=== PATIENT | female | born 1995 | race Caucasian/White ===

== ENCOUNTER 2018-04-01 18:29 | Inpatient (IN) | payer OTHER ==
[2018-04-01] MEDS ORDERED: Sodium Chloride 0.9% 1,000 ML IV ONE ×2 (19:05→22:25)
--- NOTE | 2018-04-01 19:08 | C.PDOC ---
History Of Present Illness 22 y/o female BIBA for evaluation of fever/chills, back and lower abdominal pain and foul smelling urine since yesterday. Patient is s/p termination of 10 days ago (at approx 5 weeks gestation), given pills and vaginal amaro ppository by her associate store director (taken on 03/20 and 03/21). She had some vaginal bleeding at that time, which has improved and is currently minimal. She admits to history of prior UTIs. Patient denies vomiting, diarrhea, chest pain, SOB, vaginal discharge, dysuria. Time Seen by Provider: 04/01/18 18:50 Chief Complaint (Nursing): Fever History Per: Patient History/Exam Limitations: no limitations Onset/Duration Of Symptoms: Days (since yesterdat ) Current Symptoms Are (Timing): Still Present Associated Symptoms: Fever, Chills. denies: Vomiting, Diarrhea Severity: Moderate Past Medical History Reviewed: Historical Data, Nursing Documentation, Vital Signs Vital Signs: Last Vital Signs Temp 103.1 F H 04/01/18 18:46 Pulse 122 H 04/01/18 18:46 Resp 20 04/01/18 18:46 BP 122/69 04/01/18 18:46 Pulse Ox 98 04/01/18 18:46 - Medical History PMH: No Chronic Diseases Family History: States: No Known Family Hx - Social History Hx Alcohol Use: No Hx Substance Use: No - Immunization History Hx Tetanus Toxoid Vaccination: No Hx Influenza Vaccination: No Hx Pneumococcal Vaccination: No Review Of Systems Constitutional: Positive for: Fever, Chills Cardiovascular: Negative for: Chest Pain, Palpitations Respiratory: Negative for: Cough, Shortness of Breath Gastrointestinal: Positive for: Abdominal Pain (lower). Negative for: Nausea, Vomiting, Diarrhea Genitourinary: Positive for: Other (foul smelling urine, right sided flank pain) Musculoskeletal: Positive for: Back Pain Skin: Negative for: Rash Physical Exam - Physical Exam Appears: Well, Non-toxic, In Acute Distress (in mild discomfort, warm to the t ouch) Skin: Normal Color, Warm, Dry Head: Normacephalic Eye(s): bilateral: Normal Inspection Oral Mucosa: Moist Cardiovascular: Rhythm Regular (tachycardic) Respiratory: Normal Breath Sounds, No Rales, No Rhonchi, No Wheezing Gastrointestinal/Abdominal: Bowel Sounds, Soft, Tenderness (mild tenderness to suprapubic area), No Guarding, No Rebound, Other ((-) McBurney's) Back: CVA Tenderness (Right) Neurological/Psych: Oriented x3 Gait: Steady ED Course And Treatment - Laboratory Results Result Diagrams: 04/05/18 11:07 04/05/18 11:07 O2 Sat by Pulse Oximetry: 98 (RA) Pulse Ox Interpretation: Normal - CT Scan/US transvaginal US Other Rad Studies (CT/US): Read By Radiologist, Radiology Report Reviewed CT/US Interpretation: Name:BERNARDA FIELDS Exam Date:Apr 01, 2018 8:35:39 PM EDT. Modality Type:SD\US\ID\SR. Description:US - PELVIC REAL TIME TRANSABDOMINAL/TRANSVAGINAL W COLOR DOPPLER. Gender:F Laterality:Bilateral. :94 Referring Physician:Natalia Odell (). History. Pelvic pain status post TOP. Comparison. None available. Technique. Realtime sonographic images were obtained in multiple projections. Findings. Uterus. Measures 7.6 x 4.1 x 5.5 cm. Retroverted. Normal in size. No fibroid or other mass lesion seen. Endometrium. Measures 0.6 cm in diameter. Unremarkable. Right ovary. Measures 3.4 x 2.4 x 2.3 cm. No solid mass. Ovarian cyst measures 1.2 x 1.2 x 1.3 cm. Normal flow. Left ovary. Measures 3.7 x 1.4 x 2.1 cm. No solid mass. Normal flow. Free fluid. No significant free fluid noted. Impression. 1. Uterus and left ovary are unremarkable. 2. Left ovarian cyst. . Electronically signed on Apr 01, 2018 10:33:48 PM EDT by: Thomas Sy M.D., CECILIO Certified By ABR & CBCCT. Fellowship Trained MRI and CT Specialis Progress Note: Blood work, UA, Upreg and transvaginal US ordered and reviewed. Patient given IV NS bolus, PO tylenol. UA (+) for UTI + leukocytosis, fever, right sided flank pain - suspect pyelonephritis in this patient. IV rocephin given. Transvaginal US negative for any acute findings/retained POC. - Physician Consult Information Physician Contacted: Ingrid Forrester Outcome Of Conversation: Discussed patient with medicine blocker and cutter contact lens, agrees with admission for pyelonephritis. Disposition - Disposition Disposition: HOSPITALIZED Disposition Time: 23:11 Condition: STABLE - Clinical Impression Clinical Impression: Pyelonephritis - Scribe Statement The provider has reviewed the documentation as recorded by the Bridgetteibe Marge Bran Provider Attestation: All medical record entries made by the Scribe were at my direction and personally dictated by me. I have reviewed the chart and agree that the record accurately reflects my personal performance of the history, physical exam, medical decision making, and the department course for this patient. I have also personally directed, reviewed, and agree with the discharge instructions and disposition. Decision To Admit - Pt Status Changed To: Hospital Disposition Of: Inpatient - Admit Certification Admit to Inpatient:: After my assessment, the patient will require hospitalization for at least two midnights. This is because of the severity of symptoms shown, intensity of services needed, and/or the medical risk in this patient being treated as an outpatient. - InPatient: Physician Admission Certification:: see notes - . Bed Request Type: Regular Admitting Physician: Ingrid Forrester Patient Diagnosis: Pyelonephritis
[2018-04-01 19:26] LABS: BASO # 0.1 K/uL (0.0-0.2); BASO % 0.9 % (0.0-2.0); HEMOGLOBIN 11.6 g/dL (11.0-16.0); LYMPH # 4.1 K/uL (1.0-4.3); LYMPH % 23.8 % (20.0-40.0); MEAN CELL VOLUME 81.9 fL (81.0-99.0); MEAN PLATELET VOLUME 6.9 fL (7.2-11.7); MONO # 1.8 K/uL (0.0-0.8); MONO % 10.8 % (0.0-10.0); NEUT % 64.5 % (50.0-75.0); RBC 4.28 Mil/uL (3.80-5.20); RED CELL DISTRIBUTION WIDTH 12.8 % (11.5-14.5); WHITE BLOOD COUNT 17.1 K/uL (4.8-10.8)
[2018-04-01 19:40] LABS: ALB/GLOB RATIO 1.2 (1.0-2.1); ALBUMIN 4.5 g/dL (3.5-5.0); ALT/SGPT 63 U/L (9-52); AST/SGOT 41 U/L (14-36); BLOOD UREA NITROGEN 8 mg/dL (7-17); GFR NON-AFRICAN AMERICAN > 60
[2018-04-01 20:08] LABS: SQUAMOUS EPITHIAL 9 /hpf (0-5); URINE BACTERIA MANY (<OCC); URINE BILIRUBIN NEGATIVE (NEGATIVE); URINE BLOOD 3+ (NEGATIVE); URINE CLARITY Hazy (Clear); URINE COLOR Yellow (YELLOW); URINE GLUCOSE (UA) NORMAL (Normal); URINE LEUKOCYTE ESTERASE 3+ Leu/uL (Negative); URINE PROTEIN 1+ mg/dL (NEGATIVE); URINE UROBILINOGEN NORMAL mg/dL (0.2-1.0)
[2018-04-01] MEDS ORDERED: cefTRIAXone IV 1 gm in Dextros 50 ML IV STA (21:55)
[2018-04-01] MEDS ORDERED: Sodium Chloride 0.9% 1,000 ML ONE (22:32)
[2018-04-02] MEDS ORDERED: Cefepime 2 GM in Sodium Chloride 0.9% 50 ML IVPB SCH (00:30)
[2018-04-02] MEDS ORDERED: Cefepime 2 GM in Sodium Chloride 0.9% 100 ML IVPB SCH (00:45)
[2018-04-02] MEDS: Sodium Chloride 0.45% 1,000 ML IV SCH ×3 (01:00→11:32)
[2018-04-02] MEDS: Cefepime 2 GM in Dextrose 5% In Water 100 ML IVPB SCH ×3 (01:45→23:48)
[2018-04-02 07:26] LABS: ALB/GLOB RATIO 1.1 (1.0-2.1); ALBUMIN 3.2 g/dL (3.5-5.0); ALT/SGPT 54 U/L (9-52); AST/SGOT 36 U/L (14-36); BLOOD UREA NITROGEN 7 mg/dL (7-17); CALCIUM 7.8 mg/dl (8.6-10.4); GFR NON-AFRICAN AMERICAN > 60
[2018-04-02 07:28] LABS: BASO # 0.1 K/uL (0.0-0.2); BASO % 0.3 % (0.0-2.0); LYMPH # 2.6 K/uL (1.0-4.3); LYMPH % 15.6 % (20.0-40.0); MEAN CELL VOLUME 82.3 fL (81.0-99.0); MEAN CORPUSCULAR HEMOGLOBIN 27.3 pg (27.0-31.0); MEAN CORPUSCULAR HGB CONC 33.1 g/dL (33.0-37.0); MONO # 2.3 K/uL (0.0-0.8); NEUT # 11.6 K/uL (1.8-7.0); NEUT % 70.1 % (50.0-75.0); RBC 3.51 Mil/uL (3.80-5.20); RED CELL DISTRIBUTION WIDTH 13.3 % (11.5-14.5); WHITE BLOOD COUNT 16.6 K/uL (4.8-10.8)
[2018-04-02 07:36] LABS: HEMOGLOBIN 9.6 g/dL (11.0-16.0)
[2018-04-02 08:33] VITALS: RESP 20
--- NOTE | 2018-04-02 09:58 | US ---
Date of service: 04/01/2018 HISTORY: pelvic pain, s/p TOP COMPARISON: None available. TECHNIQUE: Transabdominal and ultrasound was performed. FINDINGS: UTERUS: Measures 7.6 x 4.1 x 5.5 cm. The uterus is retroverted and bulky. No fibroid or other mass lesion seen. ENDOMETRIUM: Measures 6 mm in diameter. Unremarkable. CERVIX: No cervical abnormality identified. RIGHT OVARY: Measures 3.4 x 2.4 x 2.3 cm. No solid mass. Normal flow. There is a 1.2 x 1.2 x 1.3 cm para ovarian cyst. LEFT OVARY: Measures 3.7 x 1.4 x 2.1 cm. No solid mass. Normal flow. FREE FLUID: No significant free fluid noted. OTHER FINDINGS: None. IMPRESSION: No evidence for endometrial abnormality. 1.3 cm right paraovarian/parametrial cyst. A preliminary report was provided by [employer].
[2018-04-02] MEDS ORDERED: cefTRIAXone IV 1 gm in Dextros 50 ML IVPB SCH (10:00)
--- NOTE | 2018-04-02 12:16 | CP.PCM.CON ---
History of Present Illness - History of Present Illness History of Present Illness: 22 y/o female BIBA for evaluation of fever/chills and abdominal pain Patient is s/p termination of 10 days ago (at approx 5 weeks gestation She admits to history of prior UTIs. Patient denies vomiting, diarrhea, chest pain, SOB, vaginal discharge, dysuria. 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 Past Patient History - Infectious Disease Hx of Infectious Diseases: None - Past Medical History & Family History Past Medical History?: No - Past Social History Smoking Status: Never Smoked - MUSCULOSKELETAL/RHEUMATOLOGICAL Hx Falls: No - PSYCHIATRIC Hx Substance Use: No - SURGICAL HISTORY Hx Surgeries: No - ANESTHESIA Hx Anesthesia: No Hx Anesthesia Reactions: No Hx Malignant Hyperthermia: No Has any member of the family had a problem w/ anesthesia?: No Meds Allergies/Adverse Reactions: Allergies Allergy/AdvReac Type Severity Reaction Status Date / Time ibuprofen [From Motrin] Allergy Intermediate Verified 04/01/18 18:55 - Medications Medications: Current Medications Acetaminophen (Tylenol 325mg Tab) 650 mg PO Q6 PRN PRN Reason: Fever >100.4 F Last Admin: 04/02/18 11:31 Dose: 650 mg Sodium Chloride (Sodium Chloride 0.45%) 1,000 mls @ 100 mls/hr IV .Q10H ALE Last Admin: 04/02/18 11:32 Dose: 100 mls/hr Cefepime HCl 2 gm/ Dextrose 100 mls @ 100 mls/hr IVPB Q12H ALE; Protocol Last Admin: 04/02/18 01:45 Dose: 100 mls/hr Influenza Virus Vaccine (Fluzone Quad [id number]) 60 mcg IM .ONCE ONE Stop: 04/04/18 10:01 Pneumococcal Polyvalent Vaccine (Pneumovax 23 Vaccine) 0.5 ml IM .ONCE ONE Stop: 04/04/18 10:01 Results - Vital Signs Recent Vital Signs: Last Vital Signs Temp 102.8 F H 04/02/18 11:31 Pulse 91 H 04/02/18 07:00 Resp 20 04/02/18 07:00 BP 103/69 04/02/18 07:00 Pulse Ox 98 04/02/18 07:00 - Labs Result Diagrams: 04/02/18 06:47 04/02/18 06:47 Labs: Laboratory Results - last 24 hr 04/01/18 04/01/18 04/01/18 13:55 19:23 19:23 WBC 17.1 H RBC 4.28 Hgb 11.6 Hct 35.0 MCV 81.9 MCH 27.0 MCHC 33.0 RDW 12.8 Plt Count 314 MPV 6.9 L Neut % (Auto) 64.5 Lymph % (Auto) 23.8 [place] % (Auto) 10.8 H Eos % (Auto) 0.0 Baso % (Auto) 0.9 Neut # (Auto) 11.0 H Lymph # (Auto) 4.1 [place] # (Auto) 1.8 H Eos # (Auto) 0.0 Baso # (Auto) 0.1 Sodium 134 Potassium 3.7 Chloride 97 L Carbon Dioxide 24 Anion Gap 17 BUN 8 Creatinine 0.9 Est GFR ( Amer) > 60 Est GFR (Non-Af Amer) > 60 Random Glucose 96 Lactic Acid Calcium 9.0 Total Bilirubin 1.5 H AST 41 H ALT 63 H Alkaline Phosphatase 63 Total Protein 8.2 Albumin 4.5 Globulin 3.7 Albumin/Globulin Ratio 1.2 Urine Color Yellow Urine Clarity Hazy Urine pH 5.0 Ur Specific [place] 1.013 Urine Protein 1+ H Urine Glucose (UA) Normal Urine Ketones 1+ H Urine Blood 3+ H Urine Nitrate Positive H Urine Bilirubin Negative Urine Urobilinogen Normal Ur Leukocyte Esterase 3+ H Urine WBC (Auto) 92 H Urine RBC (Auto) 19 H Ur Squamous Epith Cells 9 H Urine Bacteria Many H Urine HCG, Qual 04/01/18 04/02/18 04/02/18 22:56 00:31 06:47 WBC 16.6 H RBC 3.51 L Hgb 9.6 L D Hct 28.9 L MCV 82.3 MCH 27.3 MCHC 33.1 RDW 13.3 Plt Count 252 MPV 7.0 L Neut % (Auto) 70.1 Lymph % (Auto) 15.6 L [place] % (Auto) 14.0 H Eos % (Auto) 0.0 Baso % (Auto) 0.3 Neut # (Auto) 11.6 H Lymph # (Auto) 2.6 [place] # (Auto) 2.3 H Eos # (Auto) 0.0 Baso # (Auto) 0.1 Sodium Potassium Chloride Carbon Dioxide Anion Gap BUN Creatinine Est GFR ( Amer) Est GFR (Non-Af Amer) Random Glucose Lactic Acid 0.6 L Calcium Total Bilirubin AST ALT Alkaline Phosphatase Total Protein Albumin Globulin Albumin/Globulin Ratio Urine Color Urine Clarity Urine pH Ur Specific [place] Urine Protein Urine Glucose (UA) Urine Ketones Urine Blood Urine Nitrate Urine Bilirubin Urine Urobilinogen Ur Leukocyte Esterase Urine WBC (Auto) Urine RBC (Auto) Ur Squamous Epith Cells Urine Bacteria Urine HCG, Qual Negative 04/02/18 04/02/18 06:47 10:56 WBC RBC Hgb Hct MCV MCH MCHC RDW Plt Count MPV Neut % (Auto) Lymph % (Auto) [place] % (Auto) Eos % (Auto) Baso % (Auto) Neut # (Auto) Lymph # (Auto) [place] # (Auto) Eos # (Auto) Baso # (Auto) Sodium 135 Potassium 3.8 Chloride 106 Carbon Dioxide 20 L Anion Gap 13 BUN 7 Creatinine 0.7 Est GFR ( Amer) > 60 Est GFR (Non-Af Amer) > 60 Random Glucose 88 Lactic Acid 1.8 Calcium 7.8 L Total Bilirubin 1.3 AST 36 ALT 54 H Alkaline Phosphatase 49 Total Protein 6.2 L Albumin 3.2 L D Globulin 3.0 Albumin/Globulin Ratio 1.1 Urine Color Urine Clarity Urine pH Ur Specific [place] Urine Protein Urine Glucose (UA) Urine Ketones Urine Blood Urine Nitrate Urine Bilirubin Urine Urobilinogen Ur Leukocyte Esterase Urine WBC (Auto) Urine RBC (Auto) Ur Squamous Epith Cells Urine Bacteria Urine HCG, Qual
--- NOTE | 2018-04-02 13:02 | PCM.SEPTIC ---
Sepsis Progress Note - Reassessment Type Date of Evaluation: 04/02/18 Reassessment Type: Non-invasive reassessment - Non Invasive Reassessment Were the most recent vital sign reviewed: Yes Vital Sign (Latest): Temp Pulse Resp BP Pulse Ox 102.8 F H 91 H 20 103/69 98 04/02/18 11:31 04/02/18 07:00 04/02/18 07:00 04/02/18 07:00 04/02/18 07:00 Cardiovascular: Yes: Regular Rate, Rhythm Respiratory: Yes: Normal Breath Sounds Capillary Refill: Normal (Less than 2 sec) Skin: Normal Color
[2018-04-02] MEDS: Sodium Chloride 0.9% 1,000 ML IV SCH ×3 (13:30→22:16)
--- NOTE | 2018-04-02 14:06 | CP.PCM.CON ---
History of Present Illness - History of Present Illness History of Present Illness: Hector Flor, DO MANAGER CORE Consult note for Dr Fabian Michelle: fever, chills 22 y/o female s/p induced on 03/20/18 at 5 weeks gestational age presents with fever and chills that started 3 days ago with Tmax 103.1. Patient was on OCP for few years but discontinued after moving to the [facility]. was not planned and she decided to go for induced in an outpatient clinic where she was given vaginal and oral therapy which she completed. Patient stated that she still having bleeding, changes 5 pads/day soaked with blood. Her symptoms started 3 days ago that was associated with severe right flank pain, sharp, radiates to right groin. Patient admits to poor oral intake. Denied urinary symptoms of dysurea, urgency, frequency or foul smelling urine. She denied nausea, vomiting, diarrhea MANAGER CORE hX: Menarche at age 10, regular cycles, normal flow. No h/o STD. No MANAGER CORE disease. OB Hx: induced 2 weeks ago PMH: recurrent UTI Surg Hx: denies Soc Hx: denied smoking, alcohol, illicit drugs Fam Hx: grandmother had breast cancer. Mother has DM Meds: none All: ibuprofen Past Patient History - Infectious Disease Hx of Infectious Diseases: None - Past Medical History & Family History Past Medical History?: No - Past Social History Smoking Status: Never Smoked - MUSCULOSKELETAL/RHEUMATOLOGICAL Hx Falls: No - PSYCHIATRIC Hx Substance Use: No - SURGICAL HISTORY Hx Surgeries: No - ANESTHESIA Hx Anesthesia: No Hx Anesthesia Reactions: No Hx Malignant Hyperthermia: No Has any member of the family had a problem w/ anesthesia?: No Meds Allergies/Adverse Reactions: Allergies Allergy/AdvReac Type Severity Reaction Status Date / Time ibuprofen [From Motrin] Allergy Intermediate Verified 04/01/18 18:55 - Medications Medications: Current Medications Acetaminophen (Tylenol 325mg Tab) 650 mg PO Q6 PRN PRN Reason: Fever >100.4 F Last Admin: 04/02/18 11:31 Dose: 650 mg Cefepime HCl 2 gm/ Dextrose 100 mls @ 100 mls/hr IVPB Q12H ALE; Protocol Last Admin: 04/02/18 12:42 Dose: 100 mls/hr Sodium Chloride (Sodium Chloride 0.9%) 1,000 mls @ 200 mls/hr IV .Q5H ALE Vancomycin/Sodium Chloride (Vancomycin 1 Gm/Ns 200 Ml) 1 gm in 200 mls @ 133.333 mls/hr IVPB Q24H ALE; Protocol Influenza Virus Vaccine (Fluzone Quad [id number]) 60 mcg IM .ONCE ONE Stop: 04/04/18 10:01 Pneumococcal Polyvalent Vaccine (Pneumovax 23 Vaccine) 0.5 ml IM .ONCE ONE Stop: 04/04/18 10:01 Physical Exam - Constitutional Appears: Well, No Acute Distress - Head Exam Head Exam: ATRAUMATIC, NORMAL INSPECTION, NORMOCEPHALIC - Eye Exam Eye Exam: EOMI, Normal appearance, PERRL Pupil Exam: NORMAL ACCOMODATION, PERRL - ENT Exam ENT Exam: Mucous Membranes Moist, Normal Exam - Neck Exam Neck exam: Positive for: Normal Inspection - Cardiovascular Exam Cardiovascular Exam: REGULAR RHYTHM, RRR, +S1, +S2 - GI/Abdominal Exam GI & Abdominal Exam: Normal Bowel Sounds, Soft Additional comments: RIGHT CVA TENDERNESS SUPRAPUBIC TENDERNESS - Exam External exam: NORMAL EXTERNAL EXAM Additional comments: vaginal exam shows blood, no clots, no discharge, no cervical motion tenderness. uterus normal in size - Extremities Exam Extremities exam: Positive for: normal inspection - Back Exam Back exam: CVA tenderness (R), NORMAL INSPECTION - Neurological Exam Neurological exam: Alert, CN II-XII Intact, Normal Gait, Oriented x3, Reflexes Normal - Skin Skin Exam: Dry, Intact, Normal Color, Warm Results - Vital Signs Recent Vital Signs: Last Vital Signs Temp 102.8 F H 04/02/18 11:31 Pulse 91 H 04/02/18 07:00 Resp 20 04/02/18 07:00 BP 103/69 04/02/18 07:00 Pulse Ox 98 04/02/18 07:00 - Labs Result Diagrams: 04/02/18 06:47 04/02/18 06:47 Labs: Laboratory Results - last 24 hr 04/01/18 04/01/18 04/01/18 13:55 19:23 19:23 WBC 17.1 H RBC 4.28 Hgb 11.6 Hct 35.0 MCV 81.9 MCH 27.0 MCHC 33.0 RDW 12.8 Plt Count 314 MPV 6.9 L Neut % (Auto) 64.5 Lymph % (Auto) 23.8 [place] % (Auto) 10.8 H Eos % (Auto) 0.0 Baso % (Auto) 0.9 Neut # (Auto) 11.0 H Lymph # (Auto) 4.1 [place] # (Auto) 1.8 H Eos # (Auto) 0.0 Baso # (Auto) 0.1 Sodium 134 Potassium 3.7 Chloride 97 L Carbon Dioxide 24 Anion Gap 17 BUN 8 Creatinine 0.9 Est GFR ( Amer) > 60 Est GFR (Non-Af Amer) > 60 Random Glucose 96 Lactic Acid Calcium 9.0 Total Bilirubin 1.5 H AST 41 H ALT 63 H Alkaline Phosphatase 63 Total Protein 8.2 Albumin 4.5 Globulin 3.7 Albumin/Globulin Ratio 1.2 Urine Color Yellow Urine Clarity Hazy Urine pH 5.0 Ur Specific [place] 1.013 Urine Protein 1+ H Urine Glucose (UA) Normal Urine Ketones 1+ H Urine Blood 3+ H Urine Nitrate Positive H Urine Bilirubin Negative Urine Urobilinogen Normal Ur Leukocyte Esterase 3+ H Urine WBC (Auto) 92 H Urine RBC (Auto) 19 H Ur Squamous Epith Cells 9 H Urine Bacteria Many H Urine HCG, Qual 04/01/18 04/02/18 04/02/18 22:56 00:31 06:47 WBC 16.6 H RBC 3.51 L Hgb 9.6 L D Hct 28.9 L MCV 82.3 MCH 27.3 MCHC 33.1 RDW 13.3 Plt Count 252 MPV 7.0 L Neut % (Auto) 70.1 Lymph % (Auto) 15.6 L [place] % (Auto) 14.0 H Eos % (Auto) 0.0 Baso % (Auto) 0.3 Neut # (Auto) 11.6 H Lymph # (Auto) 2.6 [place] # (Auto) 2.3 H Eos # (Auto) 0.0 Baso # (Auto) 0.1 Sodium Potassium Chloride Carbon Dioxide Anion Gap BUN Creatinine Est GFR ( Amer) Est GFR (Non-Af Amer) Random Glucose Lactic Acid 0.6 L Calcium Total Bilirubin AST ALT Alkaline Phosphatase Total Protein Albumin Globulin Albumin/Globulin Ratio Urine Color Urine Clarity Urine pH Ur Specific [place] Urine Protein Urine Glucose (UA) Urine Ketones Urine Blood Urine Nitrate Urine Bilirubin Urine Urobilinogen Ur Leukocyte Esterase Urine WBC (Auto) Urine RBC (Auto) Ur Squamous Epith Cells Urine Bacteria Urine HCG, Qual Negative 04/02/18 04/02/18 06:47 10:56 WBC RBC Hgb Hct MCV MCH MCHC RDW Plt Count MPV Neut % (Auto) Lymph % (Auto) [place] % (Auto) Eos % (Auto) Baso % (Auto) Neut # (Auto) Lymph # (Auto) [place] # (Auto) Eos # (Auto) Baso # (Auto) Sodium 135 Potassium 3.8 Chloride 106 Carbon Dioxide 20 L Anion Gap 13 BUN 7 Creatinine 0.7 Est GFR ( Amer) > 60 Est GFR (Non-Af Amer) > 60 Random Glucose 88 Lactic Acid 1.8 Calcium 7.8 L Total Bilirubin 1.3 AST 36 ALT 54 H Alkaline Phosphatase 49 Total Protein 6.2 L Albumin 3.2 L D Globulin 3.0 Albumin/Globulin Ratio 1.1 Urine Color Urine Clarity Urine pH Ur Specific [place] Urine Protein Urine Glucose (UA) Urine Ketones Urine Blood Urine Nitrate Urine Bilirubin Urine Urobilinogen Ur Leukocyte Esterase Urine WBC (Auto) Urine RBC (Auto) Ur Squamous Epith Cells Urine Bacteria Urine HCG, Qual Assessment & Plan - Assessment and Plan (Free Text) Assessment: 22 y/o female s/p induced on 03/20/18 at 5 weeks gestational age presented with 3 days h/o of fever and chills. Found to have UTI with gram negative rods on urine Cx. Plan: Abdominal pain s/p induced :Thank you for the consultation -Likely due to complicated UTI with ascending infection to right kidney -A/P/Vaginal US: no intrauterine abnormalities -Urine B-HCG: negative -UA: + LE, nitrate,WBC, RBC -UCx: gram negative rods -Continue medical management as per medical team -Patient has a follow up with OB clinic on 04/06/18 -Patient was counseled on contraception to prevent unwanted future . She will follow up as an outpatient. Thank you for the consultation. Case reviewed and plan discussed with Dr Fabian Flor,
[2018-04-02] MEDS: Vancomycin 1 gm/NS 200 ml 1 GM/200 ML BAG IVPB SCH (14:23)
[2018-04-02 14:30] LABS: ARTERIAL BLOOD GAS HCO3 19.7 mmol/L (21-28); ARTERIAL BLOOD GAS O2 SAT 39.8 % (95-98); ARTERIAL BLOOD GAS PCO2 36 mm/Hg (35-45); ARTERIAL BLOOD GAS PH 7.36 (7.35-7.45); ARTERIAL BLOOD GAS PO2 22 mm/Hg (80-100); ARTERIAL BLOOD GAS TCO2 21.4 mmol/L (22-28)
--- NOTE | 2018-04-02 14:32 | CP.PCM.HP ---
History of Present Illness - History of Present Illness History of Present Illness: CHIEF COMPLAINTS Patient is admitted from the emergency room complaining of lower abdominal pain. There is no nausea vomiting diarrhea or any urinary symptoms. 10 days ago patient had termination of 5 week gestation. Patient has a previous history of UTIs in the past. ROS. HEENT : N. Resp : No cough, wheezing ,pleuritic CP ,or hemoptysis Cardio : No anginal CP, PND, orthopnea, palpitation GI : No /v ,diarrhea or GI bleeding . 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 Musculoskel : No joint swelling , Derm : No rash Psych : Normal affect. Ext : No swelling ,calf pain PE. Pt. is alert awake in no distress. V.S As noted in the chart Head ,ear nose,throat and eyes : Normal. Neck : Supple with normal carotids. Lungs: Clear air entry. Heart : S1 & S2 normal with S4. No murmur. Abd : Soft non tender with normal bowel sounds. Neuro : Moves all ext. with no localized deficit. Ext : No edema with intact pulses.Non tender calves Derm : No rashes or decubitus ulcer. LABS/RADIOLOGY: White count is elevated to 17,000. Urine shows multiple WBCs and bacteria ASSESSMENT/PLAN : Urinary tract infection Recent termination of 5 week fetus. Present on Admission - Present on Admission Any Indicators Present on Admission: No Past Patient History - Infectious Disease Hx of Infectious Diseases: None - Past Medical History & Family History Past Medical History?: No - Past Social History Smoking Status: Never Smoked - MUSCULOSKELETAL/RHEUMATOLOGICAL Hx Falls: No - PSYCHIATRIC Hx Substance Use: No - SURGICAL HISTORY Hx Surgeries: No - ANESTHESIA Hx Anesthesia: No Hx Anesthesia Reactions: No Hx Malignant Hyperthermia: No Has any member of the family had a problem w/ anesthesia?: No Meds Allergies/Adverse Reactions: Allergies Allergy/AdvReac Type Severity Reaction Status Date / Time ibuprofen [From Motrin] Allergy Intermediate Verified 04/01/18 18:55 Results - Vital Signs Recent Vital Signs: Last Vital Signs Temp 103.1 F H 04/02/18 12:31 Pulse 91 H 04/02/18 07:00 Resp 20 04/02/18 07:00 BP 103/69 04/02/18 07:00 Pulse Ox 98 04/02/18 07:00 - Labs Result Diagrams: 04/02/18 06:47 04/02/18 06:47 Labs: Laboratory Results - last 24 hr 04/01/18 04/01/18 04/01/18 13:55 19:23 19:23 WBC 17.1 H RBC 4.28 Hgb 11.6 Hct 35.0 MCV 81.9 MCH 27.0 MCHC 33.0 RDW 12.8 Plt Count 314 MPV 6.9 L Neut % (Auto) 64.5 Lymph % (Auto) 23.8 [place] % (Auto) 10.8 H Eos % (Auto) 0.0 Baso % (Auto) 0.9 Neut # (Auto) 11.0 H Lymph # (Auto) 4.1 [place] # (Auto) 1.8 H Eos # (Auto) 0.0 Baso # (Auto) 0.1 Sodium 134 Potassium 3.7 Chloride 97 L Carbon Dioxide 24 Anion Gap 17 BUN 8 Creatinine 0.9 Est GFR ( Amer) > 60 Est GFR (Non-Af Amer) > 60 Random Glucose 96 Lactic Acid Calcium 9.0 Total Bilirubin 1.5 H AST 41 H ALT 63 H Alkaline Phosphatase 63 Total Protein 8.2 Albumin 4.5 Globulin 3.7 Albumin/Globulin Ratio 1.2 Urine Color Yellow Urine Clarity Hazy Urine pH 5.0 Ur Specific [place] 1.013 Urine Protein 1+ H Urine Glucose (UA) Normal Urine Ketones 1+ H Urine Blood 3+ H Urine Nitrate Positive H Urine Bilirubin Negative Urine Urobilinogen Normal Ur Leukocyte Esterase 3+ H Urine WBC (Auto) 92 H Urine RBC (Auto) 19 H Ur Squamous Epith Cells 9 H Urine Bacteria Many H Urine HCG, Qual 04/01/18 04/02/18 04/02/18 22:56 00:31 06:47 WBC 16.6 H RBC 3.51 L Hgb 9.6 L D Hct 28.9 L MCV 82.3 MCH 27.3 MCHC 33.1 RDW 13.3 Plt Count 252 MPV 7.0 L Neut % (Auto) 70.1 Lymph % (Auto) 15.6 L [place] % (Auto) 14.0 H Eos % (Auto) 0.0 Baso % (Auto) 0.3 Neut # (Auto) 11.6 H Lymph # (Auto) 2.6 [place] # (Auto) 2.3 H Eos # (Auto) 0.0 Baso # (Auto) 0.1 Sodium Potassium Chloride Carbon Dioxide Anion Gap BUN Creatinine Est GFR ( Amer) Est GFR (Non-Af Amer) Random Glucose Lactic Acid 0.6 L Calcium Total Bilirubin AST ALT Alkaline Phosphatase Total Protein Albumin Globulin Albumin/Globulin Ratio Urine Color Urine Clarity Urine pH Ur Specific [place] Urine Protein Urine Glucose (UA) Urine Ketones Urine Blood Urine Nitrate Urine Bilirubin Urine Urobilinogen Ur Leukocyte Esterase Urine WBC (Auto) Urine RBC (Auto) Ur Squamous Epith Cells Urine Bacteria Urine HCG, Qual Negative 04/02/18 04/02/18 06:47 10:56 WBC RBC Hgb Hct MCV MCH MCHC RDW Plt Count MPV Neut % (Auto) Lymph % (Auto) [place] % (Auto) Eos % (Auto) Baso % (Auto) Neut # (Auto) Lymph # (Auto) [place] # (Auto) Eos # (Auto) Baso # (Auto) Sodium 135 Potassium 3.8 Chloride 106 Carbon Dioxide 20 L Anion Gap 13 BUN 7 Creatinine 0.7 Est GFR ( Amer) > 60 Est GFR (Non-Af Amer) > 60 Random Glucose 88 Lactic Acid 1.8 Calcium 7.8 L Total Bilirubin 1.3 AST 36 ALT 54 H Alkaline Phosphatase 49 Total Protein 6.2 L Albumin 3.2 L D Globulin 3.0 Albumin/Globulin Ratio 1.1 Urine Color Urine Clarity Urine pH Ur Specific [place] Urine Protein Urine Glucose (UA) Urine Ketones Urine Blood Urine Nitrate Urine Bilirubin Urine Urobilinogen Ur Leukocyte Esterase Urine WBC (Auto) Urine RBC (Auto) Ur Squamous Epith Cells Urine Bacteria Urine HCG, Qual
[2018-04-02 14:41] LABS: VENOUS BLOOD GAS BASE EXCESS -5.2 mmol/L (0.0-2.0); VENOUS BLOOD GAS PCO2 37 mmHg (40-60); VENOUS BLOOD GAS PO2 22 mm/Hg (30-55); VENOUS BLOOD PH 7.34 (7.32-7.43)
[2018-04-02 15:00] LABS: HEPATITIS B SURFACE AG Negative (NEGATIVE)
[2018-04-02 15:06] LABS: HEPATITIS A IGM NEGATIVE (NEGATIVE); HEPATITIS B CORE AB NEGATIVE (NEGATIVE)
[2018-04-02 15:17] LABS: HEPATITIS C ANTIBODY NEGATIVE (NEGATIVE)
--- NOTE | 2018-04-02 18:13 | US ---
Date of service: 04/02/2018 HISTORY: adb pain and fever UTI r/o pyelo COMPARISON: None. TECHNIQUE: Sonographic evaluation of the abdomen. FINDINGS: LIVER: Measures 15.3 cm. Normal echogenicity of the liver parenchyma. No mass. No intrahepatic bile duct dilatation. GALLBLADDER: Unremarkable. No gallstones. COMMON BILE DUCT: Measures 4 mm. No stones. No dilatation. PANCREAS: Unremarkable as visualized. No mass. No ductal dilatation. RIGHT KIDNEY: Measures 10.7 x 4.3 x 5.0cm. Nonobstructive 5 x 5 x 4 mm mid pole calculus. Normal echogenicity. No mass, or hydronephrosis. LEFT KIDNEY: Measures 10.8 x 4.9 x 5.2cm. Normal echogenicity. No calculus, mass, or hydronephrosis. SPLEEN: Normal in size and contour. No mass. AORTA: No aneurysmal dilatation. No aortic atherosclerotic calcification or mural plaque present. IVC: Unremarkable. OTHER FINDINGS: None. IMPRESSION: Nonobstructive right 5 mm nephrolith.
[2018-04-03] MEDS: Sodium Chloride 0.9% 1,000 ML IV SCH ×5 (03:32→21:24)
[2018-04-03 08:15] LABS: BASO # 0.1 K/uL (0.0-0.2); BASO % 0.6 % (0.0-2.0); EOS % 0.1 % (0.0-4.0); HEMOGLOBIN 9.2 g/dL (11.0-16.0); LYMPH % 23.7 % (20.0-40.0); MEAN CELL VOLUME 82.2 fL (81.0-99.0); MEAN CORPUSCULAR HEMOGLOBIN 27.8 pg (27.0-31.0); MEAN CORPUSCULAR HGB CONC 33.8 g/dL (33.0-37.0); MONO # 1.2 K/uL (0.0-0.8); MONO % 14.1 % (0.0-10.0); NEUT # 5.2 K/uL (1.8-7.0); NEUT % 61.5 % (50.0-75.0); RBC 3.32 Mil/uL (3.80-5.20); RED CELL DISTRIBUTION WIDTH 13.3 % (11.5-14.5); WHITE BLOOD COUNT 8.5 K/uL (4.8-10.8)
[2018-04-03 08:55] LABS: ALBUMIN 2.9 g/dL (3.5-5.0); ALT/SGPT 59 U/L (9-52); AST/SGOT 48 U/L (14-36); BLOOD UREA NITROGEN 6 mg/dL (7-17); CALCIUM 8.1 mg/dl (8.6-10.4); GFR NON-AFRICAN AMERICAN > 60
[2018-04-03] MEDS: Cefepime 2 GM in Dextrose 5% In Water 100 ML IVPB SCH ×2 (12:26→23:51)
--- NOTE | 2018-04-03 12:56 | CP.PCM.PN ---
Subjective - Date & Time of Evaluation Date of Evaluation: 04/03/18 Time of Evaluation: 08:00 - Subjective Subjective: improving sepsis resolving' cultures noted abd soft Objective - Vital Signs/Intake and Output Vital Signs (last 24 hours): Temp Pulse Resp BP Pulse Ox 98.6 F 88 20 97/62 L 97 04/03/18 08:01 04/03/18 08:01 04/03/18 08:01 04/03/18 08:01 04/03/18 08:01 Intake and Output: 04/03/18 04/03/18 06:59 18:59 Intake Total 1800 Balance 1800 - Medications Medications: Current Medications Acetaminophen (Tylenol 325mg Tab) 650 mg PO Q6 PRN PRN Reason: Fever >100.4 F Last Admin: 04/03/18 06:22 Dose: 650 mg Cefepime HCl 2 gm/ Dextrose 100 mls @ 100 mls/hr IVPB Q12H ALE; Protocol Last Admin: 04/03/18 12:26 Dose: 100 mls/hr Sodium Chloride (Sodium Chloride 0.9%) 1,000 mls @ 200 mls/hr IV .Q5H ALE Last Admin: 04/03/18 08:53 Dose: 200 mls/hr Vancomycin/Sodium Chloride (Vancomycin 1 Gm/Ns 200 Ml) 1 gm in 200 mls @ 133.333 mls/hr IVPB Q24H ALE; Protocol Last Admin: 04/02/18 14:23 Dose: 133.333 mls/hr Influenza Virus Vaccine (Fluzone Quad [id number]) 60 mcg IM .ONCE ONE Stop: 04/04/18 10:01 Pneumococcal Polyvalent Vaccine (Pneumovax 23 Vaccine) 0.5 ml IM .ONCE ONE Stop: 04/04/18 10:01 - Labs Labs: 04/03/18 08:08 04/03/18 08:08 - Constitutional Appears: Well - Head Exam Head Exam: ATRAUMATIC, NORMAL INSPECTION, NORMOCEPHALIC - Eye Exam Eye Exam: EOMI, Normal appearance, PERRL Pupil Exam: NORMAL ACCOMODATION, PERRL - ENT Exam ENT Exam: Mucous Membranes Moist, Normal Exam - Neck Exam Neck Exam: Full ROM, Normal Inspection. absent: Lymphadenopathy - Respiratory Exam Respiratory Exam: Clear to Ausculation Bilateral, NORMAL BREATHING PATTERN - Cardiovascular Exam Cardiovascular Exam: REGULAR RHYTHM, +S1, +S2. absent: Murmur - GI/Abdominal Exam GI & Abdominal Exam: Soft, Normal Bowel Sounds. absent: Tenderness - Rectal Exam Rectal Exam: NORMAL INSPECTION - Extremities Exam Extremities Exam: Full ROM, Normal Capillary Refill, Normal Inspection. absent: Joint Swelling, Pedal Edema - Back Exam Back Exam: NORMAL INSPECTION - Neurological Exam Neurological Exam: Alert, Awake, CN II-XII Intact, Normal Gait, Oriented x3 - Psychiatric Exam Psychiatric exam: Normal Affect, Normal Mood - Skin Skin Exam: Dry, Intact, Normal Color, Warm Assessment and Plan (1) Sepsis Status: Acute (2) UTI (urinary tract infection) Status: Acute
[2018-04-03] MEDS: Vancomycin 1 gm/NS 200 ml 1 GM/200 ML BAG IVPB SCH (13:51)
--- NOTE | 2018-04-03 14:23 | CP.PCM.PN ---
Subjective - Date & Time of Evaluation Date of Evaluation: 04/03/18 Time of Evaluation: 14:21 - Subjective Subjective: CHIEF COMPLAINTS TODAY : Patient has no further fever abdominal pain. ROS. HEENT : N. Resp : No cough, wheezing ,pleuritic CP ,or hemoptysis Cardio : No anginal CP, PND, orthopnea, palpitation GI : No abd.pain, n/v ,diarrhea or GI bleeding . 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 Musculoskel : No joint swelling , Derm : No rash Psych : Normal affect. Ext : No swelling ,calf pain PE. Pt. is alert awake in no distress. V.S As noted in the chart Head ,ear nose,throat and eyes : Normal. Neck : Supple with normal carotids. Lungs: Clear air entry. Heart : S1 & S2 normal with S4. No murmur. Abd : Soft non tender with normal bowel sounds. Neuro : Moves all ext. with no localized deficit. Ext : No edema with intact pulses.Non tender calves Derm : No rashes or decubitus ulcer. LABS/RADIOLOGY: Urine shows E. coli ASSESSMENT/PLAN : Continue IV antibiotics for 1 more day and plan for discharge in a.m. Objective - Vital Signs/Intake and Output Vital Signs (last 24 hours): Temp Pulse Resp BP Pulse Ox 102.9 F H 88 20 97/62 L 97 04/03/18 13:41 04/03/18 08:01 04/03/18 08:01 04/03/18 08:01 04/03/18 08:01 - Medications Medications: Current Medications Acetaminophen (Tylenol 325mg Tab) 650 mg PO Q6 PRN PRN Reason: Fever >100.4 F Last Admin: 04/03/18 13:41 Dose: 650 mg Cefepime HCl 2 gm/ Dextrose 100 mls @ 100 mls/hr IVPB Q12H ALE; Protocol Last Admin: 04/03/18 12:26 Dose: 100 mls/hr Sodium Chloride (Sodium Chloride 0.9%) 1,000 mls @ 200 mls/hr IV .Q5H ALE Last Admin: 04/03/18 08:53 Dose: 200 mls/hr Vancomycin/Sodium Chloride (Vancomycin 1 Gm/Ns 200 Ml) 1 gm in 200 mls @ 133.333 mls/hr IVPB Q24H ALE; Protocol Last Admin: 04/03/18 13:51 Dose: 133.333 mls/hr Influenza Virus Vaccine (Fluzone Quad [id number]) 60 mcg IM .ONCE ONE Stop: 04/04/18 10:01 Pneumococcal Polyvalent Vaccine (Pneumovax 23 Vaccine) 0.5 ml IM .ONCE ONE Stop: 04/04/18 10:01 - Labs Labs: 04/03/18 08:08 04/03/18 08:08
[2018-04-03] MEDS: Multiple Vitamins Tab PO SCH (16:00)
[2018-04-04] MEDS: Sodium Chloride 0.9% 1,000 ML IV SCH ×4 (03:10→20:25)
[2018-04-04] MEDS: Multiple Vitamins Tab PO SCH (09:47)
[2018-04-04] MEDS ORDERED: Influenza Vaccine 60 MCG/0.5 ML SYR (3 yr & up) IM ONE (10:00)
[2018-04-04] MEDS ORDERED: Pneumococcal 23-Valent Vaccine IM ONE (10:00)
[2018-04-04] MEDS ORDERED: Iohexol 240 (50 ml) PO ONE (10:45)
--- NOTE | 2018-04-04 12:21 | CP.PCM.PN ---
Subjective - Date & Time of Evaluation Date of Evaluation: 04/04/18 Time of Evaluation: 08:00 - Subjective Subjective: fever persists recc : eval / CT abd/ pelvis Objective - Vital Signs/Intake and Output Vital Signs (last 24 hours): Temp Pulse Resp BP Pulse Ox 103 F H 104 H 20 110/68 96 04/04/18 11:47 04/04/18 07:50 04/04/18 07:50 04/04/18 07:50 04/04/18 07:50 Intake and Output: 04/04/18 04/04/18 06:59 18:59 Intake Total 1600 2100 Balance 1600 2100 - Medications Medications: Current Medications Acetaminophen (Tylenol 325mg Tab) 650 mg PO Q6 PRN PRN Reason: Fever >100.4 F Last Admin: 04/04/18 11:47 Dose: 650 mg Cefepime HCl 2 gm/ Dextrose 100 mls @ 100 mls/hr IVPB Q12H ALE; Protocol Last Admin: 04/03/18 23:51 Dose: 100 mls/hr Sodium Chloride (Sodium Chloride 0.9%) 1,000 mls @ 100 mls/hr IV .Q10H ALE Last Admin: 04/04/18 10:55 Dose: Not Given Multivitamins (Hexavitamin) 1 tab PO DAILY ALE Last Admin: 04/04/18 09:47 Dose: 1 tab - Labs Labs: 04/03/18 08:08 04/03/18 08:08 Assessment and Plan (1) Sepsis Status: Acute (2) UTI (urinary tract infection) Status: Acute
[2018-04-04] MEDS: Cefepime 2 GM in Dextrose 5% In Water 100 ML IVPB SCH (12:41)
--- NOTE | 2018-04-04 13:53 | CP.PCM.PN ---
Subjective - Date & Time of Evaluation Date of Evaluation: 04/04/18 Time of Evaluation: 13:52 - Subjective Subjective: CHIEF COMPLAINTS TODAY : Patient is spiking temperature of 10 3F. There is no any abdominal pain ROS. HEENT : N. Resp : No cough, wheezing ,pleuritic CP ,or hemoptysis Cardio : No anginal CP, PND, orthopnea, palpitation GI : No abd.pain, n/v ,diarrhea or GI bleeding . 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 Musculoskel : No joint swelling , Derm : No rash Psych : Normal affect. Ext : No swelling ,calf pain PE. Pt. is alert awake in no distress. V.S As noted in the chart Head ,ear nose,throat and eyes : Normal. Neck : Supple with normal carotids. Lungs: Clear air entry. Heart : S1 & S2 normal with S4. No murmur. Abd : Soft non tender with normal bowel sounds. Neuro : Moves all ext. with no localized deficit. Ext : No edema with intact pulses.Non tender calves Derm : No rashes or decubitus ulcer. LABS/RADIOLOGY: Urine shows E. coli ASSESSMENT/PLAN : CT of the abdomen and pelvis for further evaluation of continued fever Objective - Vital Signs/Intake and Output Vital Signs (last 24 hours): Temp Pulse Resp BP Pulse Ox 99.8 F H 104 H 20 110/68 96 04/04/18 12:47 04/04/18 07:50 04/04/18 07:50 04/04/18 07:50 04/04/18 07:50 Intake and Output: 04/04/18 04/04/18 11:59 23:59 Intake Total 2100 Balance 2100 - Medications Medications: Current Medications Acetaminophen (Tylenol 325mg Tab) 650 mg PO Q6 PRN PRN Reason: Fever >100.4 F Last Admin: 04/04/18 11:47 Dose: 650 mg Cefepime HCl 2 gm/ Dextrose 100 mls @ 100 mls/hr IVPB Q12H ALE; Protocol Last Admin: 04/04/18 12:41 Dose: 100 mls/hr Sodium Chloride (Sodium Chloride 0.9%) 1,000 mls @ 100 mls/hr IV .Q10H ALE Last Admin: 04/04/18 10:55 Dose: Not Given Multivitamins (Hexavitamin) 1 tab PO DAILY ALE Last Admin: 04/04/18 09:47 Dose: 1 tab - Labs Labs: 04/03/18 08:08 04/03/18 08:08
[2018-04-04] MEDS ORDERED: Iodixanol 320 MG/ML 100 ML BOTTLE IV ONE (14:12)
--- NOTE | 2018-04-04 16:36 | CT ---
Date of service: 04/04/2018 PROCEDURE: CT Abdomen and Pelvis with Oral contrast. HISTORY: Persistent fever with abdominal pain COMPARISON: None. TECHNIQUE: Contiguous axial images of the abdomen and pelvis following oral and intravenous injection of approximately 100 cc Visipaque 320 contrast material. Additional 2D sagittal and coronal the reformats generated. Radiation dose: Total exam DLP = 225.54 mGy-cm. This CT exam was performed using one or more of the following dose reduction techniques: Automated exposure control, adjustment of the mA and/or kV according to patient size, and/or use of iterative reconstruction technique. FINDINGS: LOWER THORAX: Patchy infiltrate right lower lobe with small right effusion. Tiny left effusion and minimal left basilar atelectasis. LIVER: Liver is mildly enlarged measuring over 19 cm in CC dimension. No obvious hepatic mass or collection. Portal and splenic veins opacified. GALLBLADDER AND BILE DUCTS: Gallbladder appears incompletely distended which may account for slight thick-walled appearance of some mild pericholecystic fluid or edema not excluded. However the possibility. PANCREAS: The pancreas appears grossly unremarkable without obvious masses collections or calcifications. SPLEEN: Unremarkable. No splenomegaly. ADRENALS: There are no adrenal lesions seen. Kidneys demonstrate symmetric nephrograms. KIDNEYS AND URETERS: There are patchy areas of diminished contrast enhancement scattered throughout the cortex of the upper and midpole and to a lesser degree lower pole right kidney. Findings could represent a pyelonephritis. Clinical correlation with urinalysis is recommended. Previously described nonobstructing calculus midpole right kidney not appreciated on this study. Correlation with urinalysis recommended to assess for UTI. BLADDER: Urinary bladder is physiologically distended. No evidence of intraluminal urinary bladder calculi. REPRODUCTIVE: The endometrial canal appears prominent diameter. Clinical correlation recommended. APPENDIX: Unremarkable. BOWEL: Evaluation of the bowel is slightly limited due to incomplete opacification. Stomach is partially distended with food debris contrast material liquid and air. Most of the small bowel is incompletely opacified collapsed therefore difficult to assess. There is no evidence of mechanical bowel obstruction with oral contrast material seen opacifying the large bowel to the level of the rectum. Questionable mild wall thickening of the distal descending and sigmoid colon junction which is likely due to some combination of incomplete distension, peristalsis, unopacified adherent stool however possibility of inflammatory process not completely excluded. PERITONEUM: Unremarkable. No fluid collection. No free air. LYMPH NODES: No significant abdominal or retroperitoneal adenopathy. VASCULATURE: Unremarkable. No aortic aneurysm. No aortic atherosclerotic calcification or mural plaque present. BONES: No fracture or destructive lesion. OTHER FINDINGS: None. IMPRESSION: Lower lobe infiltrate with small right-sided effusion. Tiny left effusion with minimal left basilar atelectasis. Patchy areas of diminished contrast enhancement scattered throughout the cortex of the upper and midpole and to a lesser degree lower pole right kidney. Findings could represent a pyelonephritis. Clinical correlation with urinalysis is recommended. Previously described nonobstructing calculus midpole right kidney not appreciated on this study. Correlation with urinalysis recommended to assess for UTI. Questionable mild wall thickening of the distal descending and sigmoid colon junction which is likely due to some combination of incomplete distension, peristalsis, unopacified adherent stool however possibility of inflammatory process not completely excluded.
--- NOTE | 2018-04-04 18:04 | CP.PCM.PN ---
Subjective - Date & Time of Evaluation Date of Evaluation: 04/04/18 Time of Evaluation: 09:00 - Subjective Subjective: fever persists CT noted + Pyelo + infiltrates Merrem added Objective - Vital Signs/Intake and Output Vital Signs (last 24 hours): Temp Pulse Resp BP Pulse Ox 100.6 F H 98 H 20 109/73 98 04/04/18 17:50 04/04/18 15:40 04/04/18 15:40 04/04/18 15:40 04/04/18 15:40 Intake and Output: 04/04/18 04/04/18 06:59 18:59 Intake Total 1600 4400 Balance 1600 4400 - Medications Medications: Current Medications Acetaminophen (Tylenol 325mg Tab) 650 mg PO Q6 PRN PRN Reason: Fever >100.4 F Last Admin: 04/04/18 17:50 Dose: 650 mg Sodium Chloride (Sodium Chloride 0.9%) 1,000 mls @ 100 mls/hr IV .Q10H ALE Last Admin: 04/04/18 10:55 Dose: Not Given Meropenem 1 gm/ Sodium (Chloride) 100 mls @ 100 mls/hr IVPB Q8H ALE; Protocol Multivitamins (Hexavitamin) 1 tab PO DAILY ALE Last Admin: 04/04/18 09:47 Dose: 1 tab - Labs Labs: 04/03/18 08:08 04/03/18 08:08 - Constitutional Appears: Non-toxic, Chronically Ill - Head Exam Head Exam: NORMOCEPHALIC - Eye Exam Eye Exam: absent: Scleral icterus - ENT Exam ENT Exam: Mucous Membranes Dry - Neck Exam Neck Exam: absent: Lymphadenopathy - Respiratory Exam Respiratory Exam: Decreased Breath Sounds - Cardiovascular Exam Cardiovascular Exam: REGULAR RHYTHM - GI/Abdominal Exam GI & Abdominal Exam: Distended, Soft Assessment and Plan (1) Sepsis Status: Acute (2) UTI (urinary tract infection) Status: Acute - Assessment and Plan (Free Text) Assessment: cont iv rx for pneumonia sepsis UTI
[2018-04-04] MEDS: Meropenem 1 GM in Sodium Chloride 0.9% 100 ML IVPB SCH (19:30)
[2018-04-05] MEDS: Meropenem 1 GM in Sodium Chloride 0.9% 100 ML IVPB SCH ×3 (02:05→18:47)
[2018-04-05] MEDS: Sodium Chloride 0.9% 1,000 ML IV SCH ×3 (05:07→16:34)
[2018-04-05] MEDS: Multiple Vitamins Tab PO SCH (09:29)
[2018-04-05 11:25] LABS: BASO # 0.1 K/uL (0.0-0.2); BASO % 0.6 % (0.0-2.0); EOS % 0.2 % (0.0-4.0); LYMPH # 2.9 K/uL (1.0-4.3); MEAN CELL VOLUME 81.8 fL (81.0-99.0); MEAN CORPUSCULAR HEMOGLOBIN 28.2 pg (27.0-31.0); MEAN CORPUSCULAR HGB CONC 34.5 g/dL (33.0-37.0); MEAN PLATELET VOLUME 6.9 fL (7.2-11.7); MONO # 1.5 K/uL (0.0-0.8); MONO % 15.4 % (0.0-10.0); NEUT # 5.2 K/uL (1.8-7.0); NEUT % 53.8 % (50.0-75.0); NRBC % 0.1 % (0.0-2.0); RBC 3.2 Mil/uL (3.80-5.20); RED CELL DISTRIBUTION WIDTH 12.8 % (11.5-14.5); WHITE BLOOD COUNT 9.6 K/uL (4.8-10.8)
[2018-04-05 11:59] LABS: ALBUMIN 3.1 g/dL (3.5-5.0); ALT/SGPT 79 U/L (9-52); AST/SGOT 78 U/L (14-36); BLOOD UREA NITROGEN 5 mg/dL (7-17); CALCIUM 8.3 mg/dl (8.6-10.4); GFR NON-AFRICAN AMERICAN > 60
--- NOTE | 2018-04-05 13:53 | CP.PCM.PN ---
Subjective - Date & Time of Evaluation Date of Evaluation: 04/05/18 Time of Evaluation: 13:52 - Subjective Subjective: Afebrile since yesterday. CT scan of the abdomen noted, pyelonephritis and pneumonia. Patient anxious to go home will discuss with ID for discharge Objective - Vital Signs/Intake and Output Vital Signs (last 24 hours): Temp Pulse Resp BP Pulse Ox 99.2 F 70 20 111/69 99 04/05/18 08:00 04/05/18 08:00 04/05/18 08:00 04/05/18 08:00 04/05/18 08:00 Intake and Output: 04/05/18 04/05/18 11:59 23:59 Intake Total 800 Balance 800 - Medications Medications: Current Medications Acetaminophen (Tylenol 325mg Tab) 650 mg PO Q6 PRN PRN Reason: Fever >100.4 F Last Admin: 04/05/18 12:58 Dose: 650 mg Sodium Chloride (Sodium Chloride 0.9%) 1,000 mls @ 100 mls/hr IV .Q10H ALE Last Admin: 04/05/18 12:25 Dose: 100 mls/hr Meropenem 1 gm/ Sodium (Chloride) 100 mls @ 100 mls/hr IVPB Q8H ALE; Protocol Last Admin: 04/05/18 11:18 Dose: 100 mls/hr Multivitamins (Hexavitamin) 1 tab PO DAILY ALE Last Admin: 04/05/18 09:29 Dose: 1 tab - Labs Labs: 04/05/18 11:07 04/05/18 11:07
--- NOTE | 2018-04-05 18:51 | CP.PCM.PN ---
Subjective - Date & Time of Evaluation Date of Evaluation: 04/05/18 Time of Evaluation: 10:00 - Subjective Subjective: improving on IV rx Objective - Vital Signs/Intake and Output Vital Signs (last 24 hours): Temp Pulse Resp BP Pulse Ox 98.7 F 91 H 20 99/61 L 97 04/05/18 16:07 04/05/18 16:07 04/05/18 16:07 04/05/18 16:07 04/05/18 16:07 Intake and Output: 04/05/18 04/05/18 06:59 18:59 Intake Total 1200 800 Balance 1200 800 - Medications Medications: Current Medications Acetaminophen (Tylenol 325mg Tab) 650 mg PO Q6 PRN PRN Reason: Fever >100.4 F Last Admin: 04/05/18 12:58 Dose: 650 mg Sodium Chloride (Sodium Chloride 0.9%) 1,000 mls @ 100 mls/hr IV .Q10H ALE Last Admin: 04/05/18 16:34 Dose: Not Given Meropenem 1 gm/ Sodium (Chloride) 100 mls @ 100 mls/hr IVPB Q8H ALE; Protocol Last Admin: 04/05/18 18:47 Dose: 100 mls/hr Multivitamins (Hexavitamin) 1 tab PO DAILY ALE Last Admin: 04/05/18 09:29 Dose: 1 tab - Labs Labs: 04/05/18 11:07 04/05/18 11:07 - Constitutional Appears: Non-toxic, Chronically Ill - Head Exam Head Exam: NORMOCEPHALIC - Eye Exam Eye Exam: absent: Scleral icterus - ENT Exam ENT Exam: Mucous Membranes Dry - Neck Exam Neck Exam: absent: Lymphadenopathy - Respiratory Exam Respiratory Exam: Decreased Breath Sounds - Cardiovascular Exam Cardiovascular Exam: REGULAR RHYTHM - GI/Abdominal Exam GI & Abdominal Exam: Distended - Rectal Exam Rectal Exam: Deferred Assessment and Plan (1) Sepsis Status: Acute (2) UTI (urinary tract infection) Status: Acute - Assessment and Plan (Free Text) Assessment: d/c on PO levaquin follow up in 3 days repeat CXR in 1 week
[2018-04-06] MEDS: Sodium Chloride 0.9% 1,000 ML IV SCH ×3 (00:43→12:10)
[2018-04-06] MEDS: Meropenem 1 GM in Sodium Chloride 0.9% 100 ML IVPB SCH ×2 (02:42→10:28)
[2018-04-06 08:25] VITALS: BP 111/70; PULSE 74; TEMP 98
[2018-04-06] MEDS: Multiple Vitamins Tab PO SCH (10:28)
--- NOTE | 2018-04-06 13:55 | CP.PCM.PN ---
Subjective - Date & Time of Evaluation Date of Evaluation: 04/06/18 Time of Evaluation: 13:54 - Subjective Subjective: discharged on hold due to spiking temperature of 100.6F Patient has no symptoms Will discuss with ID if we can discharge patient. Objective - Vital Signs/Intake and Output Vital Signs (last 24 hours): Temp Pulse Resp BP Pulse Ox 98.0 F 74 20 111/70 95 04/06/18 08:24 04/06/18 08:24 04/06/18 08:24 04/06/18 08:24 04/06/18 08:24 Intake and Output: 04/06/18 04/06/18 11:59 23:59 Intake Total 2100 Balance 2100 - Medications Medications: Current Medications Acetaminophen (Tylenol 325mg Tab) 650 mg PO Q6 PRN PRN Reason: Fever >100.4 F Last Admin: 04/05/18 12:58 Dose: 650 mg Sodium Chloride (Sodium Chloride 0.9%) 1,000 mls @ 100 mls/hr IV .Q10H ALE Last Admin: 04/06/18 12:10 Dose: 100 mls/hr Meropenem 1 gm/ Sodium (Chloride) 100 mls @ 100 mls/hr IVPB Q8H ALE; Protocol Last Admin: 04/06/18 10:28 Dose: 100 mls/hr Multivitamins (Hexavitamin) 1 tab PO DAILY ALE Last Admin: 04/06/18 10:28 Dose: 1 tab - Labs Labs: 04/05/18 11:07 04/05/18 11:07
[2018-04-08 22:38] VITALS: O2SAT 98
== END 2018-04-06 16:25 | disposition left against medical advice (07) | DRG 689 ==
LOC: C.ER 18:29 → C.3T 23:11
PROVIDERS: ADMIT Internal Medicine Cardiovascular Disease; ATTEND Internal Medicine Cardiovascular Disease
DX: N12 Tubulo-interstitial nephritis, not specified as acute or chronic (principal); J18.9 Pneumonia, unspecified organism; Z83.3 Family history of diabetes mellitus